=== PATIENT | male | born 1990 | race Asian ===

== ENCOUNTER 2019-07-03 22:26 | Emergency (ER) | payer MEDICAID ==
[~2019-07-03] VITALS: Ht 180.3 cm; Wt 112.0 kg
[2019-07-03 22:26] VITALS: BP_SYST 143
[2019-07-03] MEDS ORDERED: ASPIRIN 81 MG TAB.CHEW PO ONE (22:45)
[2019-07-03] MEDS ORDERED: NACL 0.9% 1,000 ML IV ONE (23:00)
[2019-07-03 23:05] LABS: HEMATOCRIT 44.2 % (36-54); HEMOGLOBIN 14.5 g/dL (14.0-18.0); MEAN CORPUSCULAR HGB CONC 33 % (32-36)
[2019-07-03 23:10] LABS: BASOPHILS # (AUTO) 0.1 K/uL (0.0-0.2); BASOPHILS % (AUTO) 0.8 % (0.0-2.0); EOSINOPHILS # (AUTO) 0.2 K/uL (0.0-0.4); EOSINOPHILS % (AUTO) 2.1 % (0.0-4.0); LYMPHOCYTES # (AUTO) 3.1 K/uL (1.0-5.5); LYMPHOCYTES % (AUTO) 39.6 % (20.5-51.5); MEAN CORPUSCULAR HEMOGLOBIN 26 pg (27-31); MEAN CORPUSCULAR VOLUME 79 fL (79.0-98.0); MONOCYTES # (AUTO) 0.9 K/uL (0.0-1.0); MONOCYTES % (AUTO) 11.5 % (1.7-9.3); NEUTROPHILS # (AUTO) 3.6 K/uL (1.8-7.7); PLATELET COUNT (AUTO) 236 K/uL (130-430); RED BLOOD CELL COUNT(AUTO) 5.61 MIL/uL (4.2-6.2); RED CELL DISTRIBUTION WIDTH 13.9 % (9.0-15.0); WHITE BLOOD COUNT (AUTO) 7.7 K/uL (4.8-10.8)
[2019-07-03 23:20] LABS: CALCIUM 8.7 mg/dL (8.4-11.0); CREATININE 1.28 mg/dL (0.55-1.30)
[2019-07-03 23:24] LABS: BILIRUBIN,URINE NEGATIVE (NEGATIVE); BLOOD, URINE NEGATIVE (NEGATIVE); CLARITY/URINE CLEAR (CLEAR); COLOR,URINE YELLOW (YELLOW); GLUCOSE,URINE NEGATIVE (NEGATIVE); KETONES,URINE NEGATIVE (NEGATIVE); LEUKOCYTE ESTERASE ,URINE NEGATIVE (NEGATIVE); NITRITE, URINE NEGATIVE (NEGATIVE); PROTEIN URINE NEGATIVE (NEGATIVE); UROBILINOGEN,URINE 0.2 (0.2-1.0)
[2019-07-03 23:26] LABS: ALBUMIN 3.7 g/dL (3.4-4.8); TOTAL BILIRUBIN 0.3 mg/dL (0.0-1.0)
[2019-07-03] MEDS ORDERED: KETOROLAC TROMETHAMINE 30 MG VIAL IVP ONE (23:30)
[2019-07-04] MEDS ORDERED: LORazepam 2 MG/ML VIAL IVP ONE
[2019-07-04 00:20] VITALS: BP_SYST 138
== END 2019-07-04 00:20 | disposition home or self-care (01) ==
LOC: SED 22:26
DX: I47.1 Supraventricular tachycardia (principal); R07.89 Other chest pain; F17.210 Nicotine dependence, cigarettes, uncomplicated
CPT/HCPCS: 36415; 71045; 80053; 81003; 82550; 83605; 83690; 84484; 85025; 85610; 85730; 87040; 93005; 99285; J1885 ×2; J7030

== ENCOUNTER 2019-09-04 21:57 | Emergency (ER) | payer MEDICAID ==
[~2019-09-04] VITALS: Ht 175.3 cm; Wt 97.5 kg
[2019-09-04 22:00] VITALS: BP_SYST 138
--- NOTE | 2019-09-04 22:00 | NUR ---
Patient triaged and placed in waiting room. VSS and patient appears in no acute distress at this time. Accompanied by SELF, awaiting available bed, and MD notified of need for MSE.
--- NOTE | 2019-09-05 00:46 | NUR ---
Patient to ER CHAIR to gown for evaluation. Side rails up. Report given to AMALIA BERGER.
--- NOTE | 2019-09-05 00:50 | NUR ---
Patient complains of headache and nausea x 1 week. Pt takes excedrin for the headache but tends to come back. Last Excedrin was taken around 10pm today. Pt states he does not have a headache right now but still feels nauseous. Pt also states he gets dizzy as well. No other injuries/complaints per patient or noted.
--- NOTE | 2019-09-05 01:08 | NUR ---
ER Dr. Pereyra at bedside examining patient.
[2019-09-05] MEDS ORDERED: METOCLOPRAMIDE HCL 10 MG/2 ML VIAL IM ONE (01:30)
[2019-09-05 01:50] LABS: BASOPHILS # (AUTO) 0.1 K/uL (0.0-0.2); BASOPHILS % (AUTO) 0.9 % (0.0-2.0); EOSINOPHILS # (AUTO) 0.1 K/uL (0.0-0.4); EOSINOPHILS % (AUTO) 1.3 % (0.0-4.0); HEMATOCRIT 43.1 % (36-54); HEMOGLOBIN 14.5 g/dL (14.0-18.0); LYMPHOCYTES # (AUTO) 3.5 K/uL (1.0-5.5); LYMPHOCYTES % (AUTO) 36.7 % (20.5-51.5); MEAN CORPUSCULAR HEMOGLOBIN 27 pg (27-31); MEAN CORPUSCULAR HGB CONC 34 % (32-36); MEAN CORPUSCULAR VOLUME 79 fL (79.0-98.0); MONOCYTES # (AUTO) 0.9 K/uL (0.0-1.0); MONOCYTES % (AUTO) 9.6 % (1.7-9.3); NEUTROPHILS # (AUTO) 4.9 K/uL (1.8-7.7); NEUTROPHILS % (AUTO) 51.5 % (40.0-70.0); PLATELET COUNT (AUTO) 207 K/uL (130-430); RED BLOOD CELL COUNT(AUTO) 5.44 MIL/uL (4.2-6.2); RED CELL DISTRIBUTION WIDTH 14.1 % (9.0-15.0); WHITE BLOOD COUNT (AUTO) 9.5 K/uL (4.8-10.8)
[2019-09-05 02:12] LABS: CALCIUM 8.9 mg/dL (8.4-11.0); CREATININE 1.04 mg/dL (0.55-1.30); POTASSIUM 3.9 mmol/L (3.5-5.1)
[2019-09-05 02:17] LABS: ALBUMIN 3.8 g/dL (3.4-4.8); TOTAL BILIRUBIN 0.3 mg/dL (0.0-1.0)
[2019-09-05 02:55] VITALS: BP_SYST 131
--- NOTE | 2019-09-05 02:55 | NUR ---
Patient given written and verbal discharge instructions and verbalizes understanding. ER MD discussed with patient the results and treatment provided. Patient in stable condition. ID arm band removed. Rx of Zofran given. Patient educated on pain management and to follow up with PMD. Pain Scale 0. Opportunity for questions provided and answered. Medication side effect fact sheet provided.
== END 2019-09-05 02:55 | disposition home or self-care (01) ==
LOC: SED 21:57
DX: R51 Headache (principal); R42 Dizziness and giddiness; H93.12 Tinnitus, left ear
CPT/HCPCS: 36415; 70450; 80053; 85025; 93005; 96372; 99285; J2765

== ENCOUNTER 2019-12-31 13:14 | Emergency (ER) | payer MEDICAID ==
[~2019-12-31] VITALS: Ht 182.9 cm; Wt 113.4 kg
[2019-12-31 13:20] VITALS: BP_SYST 147
--- NOTE | 2019-12-31 13:20 | NUR ---
Patient to ER bed 03. to gown for evaluation. Side rails up.
--- NOTE | 2019-12-31 13:22 | NUR ---
Patient arrived in the ED c/o abdominal pain and bump on the groin after lifting heavy objects today. Patient denied any chest pain or shortness of breath. Denied any fevers, chills, nausea, or vomiting. Patient is alert and oriented x4, respirations even and unlabored, speaking in full sentences, ambulating with a steady gait. VSS, pain level 8/10. Informed of approximate wait time. Instructed to notify ED staff for any changes in condition or worsening of symptoms. Patient verbalized understanding.
--- NOTE | 2019-12-31 14:00 | NUR ---
ER at bedside examining patient.
[2019-12-31 14:10] VITALS: BP_SYST 147
--- NOTE | 2019-12-31 14:10 | NUR ---
Patient given written and verbal discharge instructions and verbalizes understanding. ER MD discussed with patient the results and treatment provided. Patient in stable condition. ID arm band removed. Rx of Naproxen given. Patient educated on pain management and to follow up with PMD. Pain Scale 0/10. Opportunity for questions provided and answered. Medication side effect fact sheet provided.
== END 2019-12-31 14:10 | disposition home or self-care (01) ==
LOC: SED 13:14
DX: K42.9 Umbilical hernia without obstruction or gangrene (principal); E87.5 Hyperkalemia
CPT/HCPCS: 99282